=== PATIENT | female | born 1985 | race Caucasian/White ===

== ENCOUNTER → 2019-11-14 | Outpatient (CLI) | payer BC ==
--- NOTE | 2019-11-15 03:24 | MR ---
EXAMINATION TYPE: MR ankle LT wo con DATE OF EXAM: 11/14/2019 COMPARISON: None HISTORY: Lateral Ligament Injury, left ankle Multiplanar multiecho imaging of the left ankle was performed without contrast. Ankle mortise is anatomic. Joint spaces are fairly normal. Achilles tendon is intact. Plantar fascia appears intact. The medial and lateral flexor tendons appear intact. The collateral ligaments are int act. I see no pathologic fluid collection. There is no evidence of focal bone destruction. There is n o evidence for ankle joint effusion. IMPRESSION: Negative exam. No evidence of lateral collateral ligament tear. Normal joint spaces. No evidence of t endon tear.
== END | disposition home or self-care (01) ==
LOC: RADMRIMAIN 06:39
PROVIDERS: ATTEND Podiatrist Foot & Ankle Surgery
DX: S82.892A Other fracture of left lower leg, initial encounter for closed fracture (principal)

== ENCOUNTER → 2021-12-06 | Outpatient (CLI) | payer OTHER ==
--- NOTE | 2021-12-06 14:17 | XR ---
EXAMINATION TYPE: XR chest 2V DATE OF EXAM: 12/06/2021 COMPARISON: NONE HISTORY: S16.1XXD, S46.011D, S29.012D TECHNIQUE: Frontal and lateral views of the chest are obtained. FINDINGS: There is no focal air space opacity, pleural effusion, or pneumothorax seen. The cardiac silhouette size is within normal limits. The osseous structures are intact. IMPRESSION: No acute cardiopulmonary process.
--- NOTE | 2021-12-06 14:19 | XR ---
Cervical and thoracic spine HISTORY:S16.1XXD, S46.011D, S29.012D 5 views of the cervical spine, 3 views of the thoracic spine There is spondylosis present especially at C5-6 and C6-7, associated disc height loss, minimal tierney listhesis grade 1 C4-5. Facet arthropathy changes are present. Prevertebral soft tissues are normal. There is foraminal encroachment on the right at C5-6. Cervical vertebral bodies show preserved height and bone 3. Odontoid view is limited. There is a slight spinal curvature in the mid to lower thoracic spine. Multilevel spondylosis is pres ent. Thoracic vertebral bodies show preserved height and bone mineralization. Some loss of disc heigh t present at intervertebral levels the midthoracic spine. IMPRESSION: Degenerative disc disease, facet arthropathy as described. Slight spinal curvature.
== END | disposition home or self-care (01) ==
LOC: RADXRMAIN 13:40
PROVIDERS: ATTEND Emergency Medicine
DX: S16.1XXD Strain of muscle, fascia and tendon at neck level, subsequent encounter (principal); S29.012D Strain of muscle and tendon of back wall of thorax, subsequent encounter; S46.011D Strain of muscle(s) and tendon(s) of the rotator cuff of right shoulder, subsequent encounter; M51.36 Other intervertebral disc degeneration, lumbar region; M47.816 Spondylosis without myelopathy or radiculopathy, lumbar region
CPT/HCPCS: 71046; 72050; 72072